=== PATIENT | male | born 1970 | race Caucasian/White ===

== ENCOUNTER → 2017-02-02 | Outpatient (CLI) | payer OTHER ==
[2017-02-02 11:24] LABS: MEAN CORPUSCULAR HEMOGLOBIN 30.3 pg (27.0-33.0); MEAN CORPUSCULAR VOLUME 91.9 fl (80.0-96.0); RED CELL DISTRIBUTION WIDTH 12.2 % (11.5-14.5); WHITE BLOOD COUNT 9.5 K/mm3 (4.0-10.0)
== END ==
LOC: M LAB 10:48
PROVIDERS: ATTEND Family Medicine
DX: N21.1 Calculus in urethra (principal)

== ENCOUNTER 2018-09-10 10:28 | Day surgery (SDC) | payer OTHER ==
[~2018-09-10 10:28] MED LIST: NS 1,000 ML IV
[2018-09-10] MEDS ORDERED: PROPOFOL 500 MG/50 ML VIAL As Ordered (10:58)
[2018-09-10] MEDS ORDERED: fentaNYL 100 MCG/2 ML INJECTION (J3010) As Ordered (10:58)
[2018-09-10] MEDS ORDERED: LIDOCAINE 2% INJ 100 MG/5 ML SDV (FOR ANES.) As Ordered (11:19)
== END 2018-09-10 12:18 | disposition home or self-care (01) ==
LOC: M OPP 10:28
DX: Z12.11 Encounter for screening for malignant neoplasm of colon (principal); Z86.010 Personal history of colon polyps; R10.13 Epigastric pain; K31.89 Other diseases of stomach and duodenum; Z87.11 Personal history of peptic ulcer disease; K21.9 Gastro-esophageal reflux disease without esophagitis; R12 Heartburn; J44.9 Chronic obstructive pulmonary disease, unspecified; F17.210 Nicotine dependence, cigarettes, uncomplicated; Z88.1 Allergy status to other antibiotic agents; Z79.899 Other long term (current) drug therapy; Z80.1 Family history of malignant neoplasm of trachea, bronchus and lung
CPT/HCPCS: G0105

== ENCOUNTER → 2020-01-15 | Outpatient (CLI) | payer OTHER ==
[~2020-01-15] MED LIST changes: +BREO1INH PO; +CLON1TAB8 PO; -NS 1,000 ML IV; +OMEP1CAP73 PO; +OXYC10TA12 PO; +SUCR1TAB56 PO
== END ==
LOC: M LAB 14:14
PROVIDERS: ATTEND Family Medicine
DX: Z51.81 Encounter for therapeutic drug level monitoring (principal); M54.30 Sciatica, unspecified side
CPT/HCPCS: 36415; 80307; G0480